=== PATIENT | female | born 1970 | race Caucasian/White ===

== ENCOUNTER → 2016-11-25 | Outpatient (CLI) | payer BC ==
--- NOTE | 2016-11-25 09:50 | KCIC ---
PROCEDURE Chest, two views. HISTORY Cough. FINDINGS Frontal and lateral views of the chest are obtained. There is mild diffuse increased interstitial opacity. There is no consolidation, effusion or pneumothorax. The cardiac silhouette is upper normal in size. IMPRESSION Mild diffuse increased interstitial opacity, possibly chronic in etiology. There is no consolidated infiltrate. Electronically signed by: Siri Caldwell (Nov 25, 2016 09:49:08)
== END | disposition home or self-care (01) ==
LOC: KCIC 09:24
PROVIDERS: ATTEND Chiropractor
DX: R91.8 Other nonspecific abnormal finding of lung field (principal)
CPT/HCPCS: 71020